=== PATIENT | male | born 1970 | race Two or more races ===

== ENCOUNTER 2021-05-15 10:44 | Emergency (ER) | payer OTHER ==
[~2021-05-15] VITALS: Ht 167.6 cm; Wt 98.0 kg
[2021-05-15] MEDS ORDERED: FORTAMET500 MG PO (11:04)
== END 2021-05-15 16:00 | disposition home or self-care (01) ==
LOC: ER 10:44
DX: M54.5 Low back pain (principal); E11.9 Type 2 diabetes mellitus without complications

== ENCOUNTER → 2021-05-31 07:07 | Outpatient (CLI) | payer OTHER ==
[~2021-05-31 07:07] MED LIST: FORTAMET500 MG PO
== END | disposition home or self-care (01) ==
LOC: LAB 07:07
PROVIDERS: ATTEND General Practice
DX: Z01.812 Encounter for preprocedural laboratory examination (principal); R10.84 Generalized abdominal pain; R10.11 Right upper quadrant pain

== ENCOUNTER 2021-05-31 07:33 | Outpatient (CLI) | payer OTHER | END 2021-05-31 07:42 | disposition home or self-care (01) | LOC: SONOGRAMA 07:33 → MAMO-SONO 07:45 | PROVIDERS: ATTEND General Practice | DX: K76.0 Fatty (change of) liver, not elsewhere classified (principal); R10.84 Generalized abdominal pain; R10.811 Right upper quadrant abdominal tenderness ==

== ENCOUNTER → 2021-06-01 07:01 | Outpatient (CLI) | payer OTHER | END | disposition home or self-care (01) | LOC: LAB 07:01 | PROVIDERS: ATTEND General Practice | DX: R10.11 Right upper quadrant pain (principal); Z01.812 Encounter for preprocedural laboratory examination ==

== ENCOUNTER 2025-07-14 19:09 | Emergency (ER) | payer OTHER ==
[~2025-07-14] VITALS: Ht 167.6 cm; Wt 83.5 kg
[2025-07-14] MEDS ORDERED: DIPHTH,PERTUSS(ACELL),TET VAC 0.5 ML SYRINGE IM ONE (20:37)
[2025-07-14] MEDS ORDERED: CEFTRIAXONE SODIUM 1,000 MG VIAL ONE (20:37)
[2025-07-14] MEDS ORDERED: INSULIN REGULAR, HUMAN 1,000 UNIT/10 ML UNITS SUBCUTANEO ONE (20:45)
[2025-07-14] MEDS ORDERED: CEFTRIAXONE SODIUM 1,000 MG VIAL IM ONE (20:45)
[2025-07-14] MEDS ORDERED: TETANUS & DIPHTHERIA TOX,ADULT 0.5 ML VIAL IM ONE (20:45)
[2025-07-14] MEDS ORDERED: CEFUROXIME500 MG PO (21:07)
[2025-07-14] MEDS ORDERED: PEPCID AC20 MG PO (21:07)
== END 2025-07-14 21:47 | disposition home or self-care (01) ==
LOC: ER 19:10
DX: M79.645 Pain in left finger(s) (principal); E88.810 Metabolic syndrome; E11.9 Type 2 diabetes mellitus without complications; Z79.84 Long term (current) use of oral hypoglycemic drugs
CPT/HCPCS: 73120; 90471; 90714; J1670